=== PATIENT | female | born 1950 | race Caucasian/White ===

== ENCOUNTER 2017-12-26 09:11 | Outpatient (CLI) | payer MEDICARE, BC ==
--- NOTE | 2017-12-26 13:37 | MMO ---
BILATERAL DIGITAL SCREENING MAMMOGRAMS: Date: 12/26/17 HISTORY: 67-year-old female presents for digital screening mammogram. COMPARISON: 11/18/16 and 02/05/14. FINDINGS: This patient's mammogram was interpreted with the assistance of computer-aided detection. Scattered fibroglandular changes are noted bilaterally. Stable typically benign calcifications. No di rect or indirect evidence of malignancy. IMPRESSION: BIRADS 2: Benign Finding(s) Continue routine screening. POS: [facility]
== END 2017-12-26 09:12 | disposition home or self-care (01) ==
LOC: SCSMAMMO 09:11
PROVIDERS: ATTEND Obstetrics & Gynecology
DX: Z12.31 Encounter for screening mammogram for malignant neoplasm of breast (principal)
CPT/HCPCS: 77067

== ENCOUNTER 2019-01-30 11:23 | Outpatient (CLI) | payer MEDICARE, BC ==
--- NOTE | 2019-01-30 16:00 | MMO ---
Bilateral MAMMO Bilat Screen [facility]. CLINICAL HISTORY: Patient is 68 years old and is seen for screening. VIEWS: The views performed were: bilateral craniocaudal and bilateral mediolateral oblique. FILMS COMPARED: The present examination has been compared to prior imaging studies performed at [facility] on 11/22/2016 and 12/26/2017, and at [facility] on 02/05/2014 and 08/12/2015. This study has been interpreted with the assistance of computer-aided detection. MAMMOGRAM FINDINGS: The breasts are almost entirely fat. There are no suspicious masses, suspicious calcifications, or new areas of architectural distortion. IMPRESSION: THERE IS NO MAMMOGRAPHIC EVIDENCE OF MALIGNANCY. A ROUTINE FOLLOW-UP MAMMOGRAM IN 1 YEAR IS RECOMMENDED. ACR BI-RADS Category 1 - Negative MAMMOGRAPHY NOTE: 1. A negative mammogram report should not delay a biopsy if a dominant of clinically suspicious mass is present. 2. Approximately 10% to 15% of breast cancers are not detected by mammography. 3. Adenosis and dense breasts may obscure an underlying neoplasm.
== END 2019-01-30 11:24 | disposition home or self-care (01) ==
LOC: SCSMAMMO 11:23
PROVIDERS: ATTEND Family Medicine
DX: Z12.31 Encounter for screening mammogram for malignant neoplasm of breast (principal)
CPT/HCPCS: 77067

== ENCOUNTER 2019-02-23 10:27 | Outpatient (CLI) | payer MEDICARE, BC ==
--- NOTE | 2019-02-23 11:24 | CT ---
CT OF THE SINUSES PERFORMED WITHOUT CONTRAST ENHANCEMENT: HISTORY: Chronic sinus infection with no relief after taking 2 rounds of antibiotics. History of sinus surger y in 2008. FINDINGS: The visualized brain parenchyma appears unremarkable. The frontal sinuses are somewhat hypoplastic. The frontal recess regions are normal in appearance. There is some slight narrowing to the right an d left osteomeatal complexes. On the right side, this is related to the slightly low-lying anterior ethmoid air cell and a slightly elongated uncinate process. On the left side, there is some developm ental abnormality where the ostium appears to communicate directly with an ethmoid air cell. Also, t here is appositional change with the left middle turbinate with the uncinate process, but there is no mucosal change within the sinuses. The posterior ethmoid air cells, sphenoid sinuses, and sphenoid ethmoid recess regions are all clear. IMPRESSION: No evidence of any mucosal change or air fluid levels within the sinuses. Other incidental findings as noted above. POS: [facility]
== END 2019-02-23 10:28 | disposition home or self-care (01) ==
LOC: SCSCT 10:27
PROVIDERS: ATTEND Family Medicine
DX: J32.0 Chronic maxillary sinusitis (principal)

== ENCOUNTER 2025-05-10 12:04 | Outpatient (CLI) | payer MEDICARE, BC | END 2025-05-10 12:05 | disposition home or self-care (01) | LOC: SCSRAD 12:04 | PROVIDERS: ATTEND Student in an Organized Health Care Education/Training Program | DX: R06.02 Shortness of breath (principal) | CPT/HCPCS: 71046 ==